=== PATIENT | male | born 1975 | race Caucasian/White ===

== ENCOUNTER 2019-10-06 14:07 | Emergency (ER) | payer SELFPAY ==
--- NOTE | 2019-10-06 14:15 | NUR ---
PATIENT LEFT WITHOUT BEING SEEN BY DR. SUTHERLAND. NO FURTHER CARE PROVIDED FOR PATIENT.
== END 2019-10-06 14:15 | disposition left against medical advice (07) ==
LOC: MED 14:07
DX: Z53.21 Procedure and treatment not carried out due to patient leaving prior to being seen by health care provider (principal)